=== PATIENT | female | born 1995 | race Hispanic/Latino ===

== ENCOUNTER 2023-04-16 16:39 | Emergency (ER) | payer SELFPAY ==
[~2023-04-16] VITALS: Ht 157.5 cm; Wt 64.6 kg
[~2023-04-16 16:39] MED LIST: CYCLOBENZAPRINE5 MG PO
[2023-04-16] MEDS ORDERED: IBUPROFEN200 MG PO (17:08)
[2023-04-16] MEDS ORDERED: DOXYCYCLINE HY100 MG PO (17:08)
[2023-04-16] MEDS ORDERED: TETANUS/DIPHTHERIA TOX ADULT 0.5 ML SYR IM STA (17:09)
[2023-04-16] MEDS ORDERED: LIDOCAINE HCL 2% LOCAL 20 ML VIAL INJ STA (17:09)
[2023-04-16] MEDS ORDERED: MUPIROCIN 2% OINT 22 GM TUBE TOP ONE (17:15)
[2023-04-16] MEDS ORDERED: TETANUS/DIPHTHERIA TOX ADULT 0.5 ML SYR ONE (17:49)
[2023-04-16] MEDS ORDERED: LIDOCAINE HCL 2% LOCAL 20 ML VIAL ONE (17:49)
[2023-04-16] MEDS ORDERED: BACITRACIN ZINC 0.9GM TP ONE ×3 (17:49→18:03)
[2023-04-16 18:07] VITALS: O2SAT 100
== END 2023-04-16 18:07 | disposition home or self-care (01) ==
LOC: FSED 16:48
DX: S51.812A Laceration without foreign body of left forearm, initial encounter (principal); W26.0XXA Contact with knife, initial encounter; Y93.G1 Activity, food preparation and clean up; Y92.89 Other specified places as the place of occurrence of the external cause
CPT/HCPCS: 12001; 90471; 90714; 96372; 99284; J2001

== ENCOUNTER 2023-04-22 11:58 | Emergency (ER) | payer SELFPAY ==
[~2023-04-22] VITALS: Ht 157.5 cm; Wt 64.4 kg
[~2023-04-22 11:58] MED LIST changes: +DOXYCYCLINE HY100 MG PO; +IBUPROFEN200 MG PO
[2023-04-22 12:05] VITALS: O2SAT 94
== END 2023-04-22 12:28 | disposition home or self-care (01) ==
LOC: FSED 12:05
DX: Z48.01 Encounter for change or removal of surgical wound dressing (principal)
CPT/HCPCS: 99282

== ENCOUNTER 2023-05-03 18:36 | Emergency (ER) | payer SELFPAY ==
[~2023-05-03] VITALS: Ht 157.5 cm; Wt 64.4 kg
[2023-05-03 18:49] VITALS: O2SAT 98
== END 2023-05-03 19:40 | disposition home or self-care (01) ==
LOC: FSED 18:48
DX: Z48.02 Encounter for removal of sutures (principal)
CPT/HCPCS: 99283

== ENCOUNTER 2023-11-23 00:02 | Emergency (ER) | payer BC ==
[~2023-11-23] VITALS: Ht 157.5 cm; Wt 68.5 kg
[2023-11-23 00:07] VITALS: TEMP 97
[2023-11-23] MEDS ORDERED: IOPAMIDOL 370 MG/ML 100 ML INFUS..BTL INJ ONE (00:27)
[2023-11-23] MEDS: KETOROLAC TROMETHAMINE 30 MG/ML VIAL IV STA (00:29)
[2023-11-23] MEDS: ONDANSETRON HCL INJ 2MG/ML 2ML 2 MG/ML VIAL IV ONE (00:29)
[2023-11-23] MEDS: LACTATED RINGER'S 1,000 ML INJ ONE (00:30)
[2023-11-23 01:50] VITALS: PULSE 61; RESP 16; O2SAT 100
[2023-11-23] MEDS ORDERED: TYLENOL325 MG PO (01:51)
== END 2023-11-23 01:55 | disposition home or self-care (01) ==
LOC: FSED 00:05
DX: R10.30 Lower abdominal pain, unspecified (principal); R10.2 Pelvic and perineal pain; F41.9 Anxiety disorder, unspecified; F32.A Depression, unspecified
CPT/HCPCS: 74177; 80053; 81003; 81025; 85025; 99284; J1885; J2405; J7121; Q9967